=== PATIENT | male | born 1985 | race Caucasian/White ===

== ENCOUNTER 2020-08-08 18:55 | Emergency (ER) | payer OTHER ==
[2020-08-08 19:18] VITALS: TEMP 98
--- NOTE | 2020-08-08 19:40 | ED ---
General Adult HPI - General Chief complaint: Abdominal Pain Stated complaint: Abd Pain Time Seen by Provider: 08/08/20 19:22 Source: patient Mode of arrival: ambulatory Limitations: no limitations - History of Present Illness Initial comments: Dictation was produced using [employer] dictation software. please excuse any grammatical, word or spelling errors. Chief Complaint: 34-year-old male presents with abdominal pain and diarrhea History of Present Illness: 4-year-old male who denies any significant past medical history per the last couple of days she's been having episode of watery diarrhea and periumbilical midepigastric abdominal pain. Patient denies any significant symptoms currently. Denies any obvious sick contacts. States that is crampy in nature without any radiation of symptoms. States that his diarrhea is nonbloody and nonbilious. No vomiting may be some slight nausea. The ROS documented in this emergency department record has been reviewed and confirmed by me. Those systems with pertinent positive or negative responses have been documented in the HPI. All other systems are other negative and/or noncontributory. PHYSICAL EXAM: General Impression: Alert and oriented x3, not in acute distress HEENT: Normocephalic atraumatic, extra-ocular movements intact, pupils equal and reactive to light bilaterally, mucous membranes moist. Cardiovascular: Heart regular rate and rhythm Chest: Able to complete full sentences, no retractions, no tachypnea Abdomen: abdomen soft, non-tender, non-distended, no organomegaly, no pain in McBurney's, no left lower quadrant abdominal pain, negative Post's, hyperac tive bowel sounds Musculoskeletal: Pulses present and equal in all extremities, no peripheral edema Motor: no focal deficits noted Neurological: CN II-XII grossly intact, no focal motor or sensory deficits noted Skin: Intact with no visualized rashes Psych: Normal affect and mood ED course: 34-year-old male click presentation consistent with gastroenteritis. Vital Signs upon arrival are within acceptable limits. Laboratory evaluation obtained. CBC, metabolic panel is unremarkable. Abdomina l x-ray shows no acute processes. Patient reevaluated at bedside at 9:40 PM found to be in stable medical condition. Clinical presentation is likely gastroenteritis. He does not have any high-risk features. Patient observed in emergency department for almost 3 hours with no acute events. Patient is agreeable plan. I spoke with primary care physician. - Related Data Home Medications Medication Instructions Recorded Confirmed No Known Home Medications 08/08/20 08/08/20 Allergies Allergy/AdvReac Type Severity Reaction Status Date / Time No Known Allergies Allergy Verified 08/08/20 20:40 Review of Systems ROS Statement: Those systems with pertinent positive or pertinent negative responses have been documented in the HPI. ROS Other: All systems not noted in ROS Statement are negative. Past Medical History Past Medical History: No Reported History History of Any Multi-Drug Resistant Organisms: None Reported Past Surgical History: No Surgical Hx Reported Past Psychological History: No Psychological Hx Reported Smoking Status: Never smoker Past Alcohol Use History: Occasional Past Drug Use History: None Reported General Exam Limitations: no limitations Course Vital Signs 08/08/20 19:14 Temperature 98.0 F Pulse Rate 95 Respiratory 16 Rate Blood Pressure 143/101 O2 Sat by Pulse 100 Oximetry Medical Decision Making - Lab Data Result diagrams: 08/08/20 20:14 08/08/20 20:14 Lab Results 08/08/20 08/08/20 Range/Units 20:14 20:14 WBC 10.8 H (3.8-10.6) k/uL RBC 5.46 (4.30-5.90) m/uL Hgb 15.9 (13.0-17.5) gm/dL Hct 46.2 (39.0-53.0) % MCV 84.6 (80.0-100.0) fL MCH 29.0 (25.0-35.0) pg MCHC 34.3 (31.0-37.0) g/dL RDW 12.3 (11.5-15.5) % Plt Count 260 (150-450) k/uL MPV 7.2 Neutrophils % 67 % Lymphocytes % 23 % Monocytes % 5 % Eosinophils % 3 % Basophils % 1 % Neutrophils # 7.2 (1.3-7.7) k/uL Lymphocytes # 2.5 (1.0-4.8) k/uL Monocytes # 0.5 (0-1.0) k/uL Eosinophils # 0.4 (0-0.7) k/uL Basophils # 0.1 (0-0.2) k/uL Sodium 141 (137-145) mmol/L Potassium 4.0 (3.5-5.1) mmol/L Chloride 106 (98-107) mmol/L Carbon Dioxide 25 (22-30) mmol/L Anion Gap 10 mmol/L BUN 13 (9-20) mg/dL Creatinine 0.92 (0.66-1.25) mg/dL Est GFR (CKD-EPI)AfAm >90 (>60 ml/min/1.73 sqM) Est GFR (CKD-EPI)NonAf >90 (>60 ml/min/1.73 sqM) Glucose 94 (74-99) mg/dL Calcium 10.0 (8.4-10.2) mg/dL Total Bilirubin 0.4 (0.2-1.3) mg/dL AST 23 (17-59) U/L ALT 22 (4-49) U/L Alkaline Phosphatase 73 (38-126) U/L Total Protein 7.2 (6.3-8.2) g/dL Albumin 4.5 (3.5-5.0) g/dL Lipase 49 (23-300) U/L Disposition Clinical Impression: Gastroenteritis Disposition: HOME SELF-CARE Condition: Good Is patient prescribed a controlled substance at d/c from ED?: No Referrals: None,Stated [Primary Care Provider] - 1-2 days
[2020-08-08 20:31] LABS: Basophils # (A) 0.1 k/uL (0-0.2); Basophils % (A) 1 %; Eosinophils # (A) 0.4 k/uL (0-0.7); Eosinophils % (A) 3 %; HCT 46.2 % (39.0-53.0); HGB 15.9 gm/dL (13.0-17.5); Lymphocytes # (A) 2.5 k/uL (1.0-4.8); Lymphocytes % (A) 23 %; MCHC 34.3 g/dL (31.0-37.0); MCV 84.6 fL (80.0-100.0); Mean Platelet Volume 7.2; Monocytes # (A) 0.5 k/uL (0-1.0); Monocytes % (A) 5 %; Neutrophils # (A) 7.2 k/uL (1.3-7.7); Neutrophils % (A) 67 %; Platelet Count 260 k/uL (150-450); RBC 5.46 m/uL (4.30-5.90); RDW 12.3 % (11.5-15.5); WBC 10.8 k/uL (3.8-10.6)
[2020-08-08 20:49] LABS: ALT 22 U/L (4-49); AST 23 U/L (17-59); African American GFR (CKD) >90 (>60 ml/min/1.73 sqM); Albumin 4.5 g/dL (3.5-5.0); Alkaline Phosphatase 73 U/L (38-126); Anion Gap 10 mmol/L; Blood Urea Nitrogen 13 mg/dL (9-20); Carbon Dioxide 25 mmol/L (22-30); Chloride 106 mmol/L (98-107); Glucose 94 mg/dL (74-99); Lipase 49 U/L (23-300); Non-African American GFR(CKD) >90 (>60 ml/min/1.73 sqM); Sodium 141 mmol/L (137-145); Total Bilirubin 0.4 mg/dL (0.2-1.3); Total Protein 7.2 g/dL (6.3-8.2)
--- NOTE | 2020-08-08 21:38 | XR ---
EXAMINATION TYPE: XR abdomen 1V DATE OF EXAM: 08/08/2020 COMPARISON: NONE HISTORY: Abdominal pain TECHNIQUE: 2 views upright FINDINGS: There is no sign of intestinal obstruction or pneumoperitoneum. Fecal pattern is normal. Th ere is no evidence of a mass. Lung bases are clear. There are no pathologic calcifications over the k idneys. IMPRESSION: Nonacute abdomen.
[2020-08-08 21:53] VITALS: BP 137/88; PULSE 75; RESP 18
== END 2020-08-08 21:53 | disposition home or self-care (01) ==
LOC: EC 18:55
DX: K52.9 Noninfective gastroenteritis and colitis, unspecified (principal)
CPT/HCPCS: 36415; 74018; 80053; 83690; 85025; 99284

== ENCOUNTER 2021-01-04 09:02 | Emergency (ER) | payer BC ==
[2021-01-04 09:16] VITALS: RESP 18; TEMP 97.4
--- NOTE | 2021-01-04 09:35 | ED ---
URI HPI - General Chief Complaint: Upper Respiratory Infection Stated Complaint: Fever, sore throat, cough Time Seen by Provider: 01/04/21 09:20 Source: patient, RN notes reviewed Mode of arrival: ambulatory Limitations: no limitations - History of Present Illness Initial Comments: 35-year-old male presents emergency Department chief complaint of body aches, nasal congestion, sore throat chills. Patient states symptoms started yesterday for worse last night developed a fever 102. Patient states he did take some Tylenol states today is here progressive sore throat and body aches. No sick contacts. No history: 18 denies any current nausea vomiting diarrhea constipation. - Related Data Previous Rx's Medication Instructions Recorded Amoxicillin/Potassium Clav 1 tab PO Q12HR #20 tab 01/04/21 [Augmentin 875-125 Tablet] Allergies Allergy/AdvReac Type Severity Reaction Status Date / Time No Known Allergies Allergy Verified 01/04/21 09:16 Review of Systems ROS Statement: Those systems with pertinent positive or pertinent negative responses have been documented in the HPI. ROS Other: All systems not noted in ROS Statement are negative. Past Medical History Past Medical History: No Reported History History of Any Multi-Drug Resistant Organisms: None Reported Past Surgical History: No Surgical Hx Reported Past Psychological History: No Psychological Hx Reported Smoking Status: Never smoker Past Alcohol Use History: Occasional Past Drug Use History: None Reported General Exam Limitations: no limitations General appearance: alert, in no apparent distress Head exam: Present: atraumatic, normocephalic, normal inspection Eye exam: Present: normal appearance, PERRL, EOMI. Absent: scleral icterus, conjunctival injection, periorbital swelling ENT exam: Present: mucous membranes moist, TM's normal bilaterally. Absent: normal exam, normal oropharynx (Mild erythema) Neck exam: Present: normal inspection, full ROM. Absent: tenderness, meningismus, lymphadenopathy Respiratory exam: Present: normal lung sounds bilaterally. Absent: respiratory distress, wheezes, rales, rhonchi, stridor Cardiovascular Exam: Present: regular rate, normal rhythm, normal heart sounds. Absent: systolic murmur, diastolic murmur, rubs, gallop, clicks Course Vital Signs 01/04/21 01/04/21 09:14 09:38 Temperature 97.4 F L Pulse Rate 77 Respiratory 18 18 Rate Blood Pressure 147/96 O2 Sat by Pulse 99 Oximetry Medical Decision Making - Medical Decision Making Patient is negative for COVID-19. Patient has a prescription from discharged to condition return parameters were discussed. - Lab Data Lab Results 01/04/21 01/04/21 Range/Units 09:17 09:17 Coronavirus (PCR) Not Detected (Not Detectd) Group A Strep Rapid Negative (Negative) Disposition Clinical Impression: Acute upper respiratory infection, Sinusitis, Pharyngitis Disposition: HOME SELF-CARE Condition: Stable Instructions (If sedation given, give patient instructions): Upper Respiratory Infection (ED) Additional Instructions: Please return to the Emergency Department if symptoms worsen or any other concerns. Prescriptions: Amoxicillin/Potassium Clav [Augmentin 875-125 Tablet] 1 tab PO Q12HR #20 tab Is patient prescribed a controlled substance at d/c from ED?: No Referrals: None,Stated [Primary Care Provider] - 1-2 days Time of Disposition: 10:16
[2021-01-04 10:40] VITALS: BP 145/72; PULSE 83
== END 2021-01-04 10:40 | disposition home or self-care (01) ==
LOC: EC 09:02
DX: J02.9 Acute pharyngitis, unspecified (principal); J32.9 Chronic sinusitis, unspecified; Z20.822 Contact with and (suspected) exposure to COVID-19
CPT/HCPCS: 87081; 87430; 87635; 99283